=== PATIENT | female | born 1980 | race African-American/Black ===

== ENCOUNTER 2016-11-20 11:44 | Emergency (ER) | payer OTHER ==
[2016-11-20 11:51] VITALS: BP 133/89
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
== END 2016-11-20 14:55 | disposition home or self-care (01) ==
LOC: ER 11:44
DX: M79.605 Pain in left leg (principal); M79.604 Pain in right leg; F17.200 Nicotine dependence, unspecified, uncomplicated; E78.00 Pure hypercholesterolemia, unspecified; I10 Essential (primary) hypertension; E11.9 Type 2 diabetes mellitus without complications; Z88.6 Allergy status to analgesic agent
CPT/HCPCS: 99283

== ENCOUNTER 2017-10-19 09:55 | Emergency (ER) | payer OTHER ==
[2017-10-19 10:04] VITALS: BP 133/87
[2017-10-19 11:23] LABS: ABSOLUTE EOSINOPHILS # (AUTO) 0.1 10^3/uL (0.0-0.6); ABSOLUTE LYMPHOCYTES (AUTO) 2.1 10^3/uL (0.5-4.7); ABSOLUTE MONOCYTES (AUTO) 0.4 10^3/uL (0.1-1.4); ABSOLUTE NEUT (AUTO) 3.4 10^3/uL (1.7-8.2); BASOPHILS % (AUTO) 0.6 % (0-2); EOSINOPHILS % (AUTO) 1.4 % (0-6); HEMATOCRIT 40.3 % (36.0-47.0); HEMOGLOBIN 13.5 g/dL (12.0-15.5); HGB HCT DIFFERENCE 0.2; LYMPHOCYTES % (AUTO) 34.7 % (13-45); MEAN CORPUSCULAR HEMOGLOBIN 30.4 pg (27.0-33.4); MEAN CORPUSCULAR HGB CONC 33.4 g/dL (32.0-36.0); MEAN CORPUSCULAR VOLUME 91 fl (80-97); MONOCYTES % (AUTO) 6.3 % (3-13); RED BLOOD COUNT 4.43 10^6/uL (3.72-5.28); RED CELL DISTRIBUTION WIDTH 13.7 % (11.5-14.0)
[2017-10-19 11:46] LABS: ALANINE AMINOTRANSFERASE 27 U/L (9-52); ALBUMIN 4.3 g/dL (3.5-5.0); ALKALINE PHOSPHATASE 58 U/L (38-126); ANION GAP 12 (5-19); ASPARTATE AMINO TRANSFERASE 12 U/L (14-36); BILIRUBIN,DIRECT 0.3 mg/dL (0.0-0.4); BILIRUBIN,TOTAL 0.5 mg/dL (0.2-1.3); BLOOD UREA NITROGEN 11 mg/dL (7-20); CALCIUM 9.9 mg/dL (8.4-10.2); CARBON DIOXIDE 24 mmol/L (22-30); CHLORIDE 104 mmol/L (98-107); CREATININE RESULT 0.63 mg/dL (0.52-1.25); GLUCOSE 206 mg/dL (75-110); LIPASE 70.7 U/L (23-300); POTASSIUM 4.6 mmol/L (3.6-5.0); TOTAL PROTEIN 6.8 g/dL (6.3-8.2)
[2017-10-19 11:58] LABS: APPEARANCE,URINE SLIGHTLY-CLOUDY; BILIRUBIN,URINE NEGATIVE (NEGATIVE); GLUCOSE, URINE >=500 mg/dL (NEGATIVE); KETONES,URINE TRACE mg/dL (NEGATIVE); LEUKOCYTE ESTERASE,URINE NEGATIVE (NEGATIVE); NITRITE,URINE NEGATIVE (NEGATIVE); PROTEIN,URINE NEGATIVE (NEGATIVE); URINE SPECIFIC GRAVITY 1.033; UROBILINOGEN,URINE NEGATIVE mg/dL (<2.0)
[2017-10-19 12:05] LABS: WBC,URINE 0-1 /HPF
[2017-10-19 12:06] LABS: BACTERIA,URINE 1+ /HPF
--- NOTE | 2017-10-19 12:43 | ER Document Report ---
ED General - General Chief Complaint: Abdominal Pain Stated Complaint: ABDOMINAL PAIN Time Seen by Provider: 10/19/17 10:44 Mode of Arrival: Ambulatory Information source: Patient Notes: Patient presents with abdominal pain. She also states she has had some dizziness and blurry vision. She states she does have problems with anxiety and she has been feeling stressed recently. She states the abdomen pain is a diffuse crampy pain that is intermittent. It is moderate. Nothing makes it better or worse. There is no radiation of the symptoms. She has no problems with urination. No vaginal symptoms. No vomiting or diarrhea. TRAVEL OUTSIDE OF THE [place] IN LAST 30 DAYS: No - Related Data Allergies/Adverse Reactions: acetaminophen [From Tylenol-Codeine] Allergy (Verified 10/19/17 09:56) alprazolam [From Xanax] Allergy (Verified 10/19/17 09:56) codeine phosphate [From Tylenol-Codeine] Allergy (Verified 10/19/17 09:56) diazepam [From Valium] Allergy (Verified 10/19/17 09:56) gabapentin [Gabapentin] Allergy (Verified 10/19/17 09:56) oxycodone Allergy (Verified 10/19/17 09:56) Home Medications: Current Home Medications Carvedilol [Carvedilol] 1 tab PO DAILY 10/19/17 [History] Clonazepam [Klonopin 1 mg Tablet] 1 tab PO TID 10/19/17 [History] Metformin HCl [Metformin HCl] 1 tab PO BID 10/19/17 [History] Past Medical History - General Information source: Patient - Social History Smoking Status: Current Some Day Smoker Frequency of alcohol use: None Drug Abuse: None Family History: Reviewed & Not Pertinent Patient has suicidal ideation: No Patient has homicidal ideation: No - Past Medical History Cardiac Medical History: Reports: Hx Hypercholesterolemia, Hx Hypertension Endocrine Medical History: Reports: Hx Diabetes Mellitus Type 2 Renal/ Medical History: Reports: Hx Ovarian Cysts - Dermoid cysts. Denies: Hx Peritoneal Dialysis Psychiatric Medical History: Reports: Hx Anxiety Past Surgical History: Reports: Hx Abdominal Surgery - sigmoid colon resection as a result of complications of the L oophorectomy, Hx Gynecologic Surgery - Right ovarian cystectomy. Left oophorectomy. - Immunizations Immunizations up to date: No Hx Diphtheria, Pertussis, Tetanus Vaccination: Yes Review of Systems - Review of Systems Constitutional: Malaise, Weakness. denies: Fever Cardiovascular: denies: Chest pain, Palpitations Respiratory: denies: Cough, Short of breath Gastrointestinal: Abdominal pain, Nausea -: Yes All other systems reviewed and negative Physical Exam - Vital signs Vitals: Temp Pulse Resp BP Pulse Ox 99.1 F 94 15 133/87 H 99 10/19/17 10:03 10/19/17 10:03 10/19/17 10:03 10/19/17 10:03 10/19/17 10:03 Interpretation: Hypertensive - General General appearance: Appears well, Alert - HEENT Head: Normocephalic, Atraumatic Eyes: Normal Pupils: PERRL - Respiratory Respiratory status: No respiratory distress Chest status: Nontender Breath sounds: Normal Chest palpation: Normal - Cardiovascular Rhythm: Regular Heart sounds: Normal auscultation Murmur: No - Abdominal Inspection: Normal Distension: No distension Bowel sounds: Normal Tenderness: Nontender Organomegaly: No organomegaly - Back Back: Normal, Nontender - Extremities General upper extremity: Normal inspection, Nontender, Normal color, Normal ROM , Normal temperature General lower extremity: Normal inspection, Nontender, Normal color, Normal ROM , Normal temperature, Normal weight bearing. No: Andry's sign - Neurological Neuro grossly intact: Yes Cognition: Normal Orientation: AAOx4 Agustina Coma Scale Eye Opening: Spontaneous Agustina Coma Scale Verbal: Oriented [place] Coma Scale Motor: Obeys Commands Agustina Coma Scale Total: 15 Speech: Normal Motor strength normal: LUE, RUE, LLE, RLE Sensory: Normal - Psychological Associated symptoms: Normal affect, Normal mood - Skin Skin Temperature: Warm Skin Moisture: Dry Skin Color: Normal Course - Vital Signs Vital signs: Temp Pulse Resp BP Pulse Ox 99.1 F 94 15 133/87 H 99 10/19/17 10:03 10/19/17 10:03 10/19/17 10:03 10/19/17 10:03 10/19/17 10:03 - Laboratory Result Diagrams: 10/19/17 11:00 10/19/17 11:00 Laboratory results interpreted by me: 10/19/17 10/19/17 11:00 11:00 Glucose 206 H AST 12 L Urine Glucose (UA) >=500 H Urine Ketones TRACE H Discharge - Discharge Clinical Impression: Abdominal pain Qualifiers: Abdominal location: generalized Qualified Code(s): R10.84 - Generalized abdominal pain Condition: Stable Disposition: HOME, SELF-CARE Instructions: Abdominal Pain ([facility]), Antinausea Medication ([facility]) Additional Instructions: Please have your blood pressure rechecked within 1 week by your doctor. Prescriptions: Ondansetron [Zofran Odt 4 mg Tablet] 1 - 2 tab PO Q4H PRN #15 tab.rapdis PRN Reason: For Nausea/Vomiting Forms: Elevated Blood Pressure, Return to Work Referrals: YURI RUBALCAVA MD [COMMUNITY BASED STAFF] - Follow up as needed
== END 2017-10-19 13:01 | disposition home or self-care (01) ==
LOC: ER 09:55
DX: R10.84 Generalized abdominal pain (principal); R42 Dizziness and giddiness; R11.0 Nausea; R53.1 Weakness; F17.200 Nicotine dependence, unspecified, uncomplicated; E78.00 Pure hypercholesterolemia, unspecified; I10 Essential (primary) hypertension; E11.9 Type 2 diabetes mellitus without complications; Z88.6 Allergy status to analgesic agent
CPT/HCPCS: 36415; 80053; 81001; 81025; 83690; 85025; 99284

== ENCOUNTER 2019-03-09 09:49 | Emergency (ER) | payer SELFPAY ==
[2019-03-09] MEDS ORDERED: ONDANSETRON HCL INJ/PF 4 MG/2 ML SDV IV ONE (10:44)
[2019-03-09] MEDS ORDERED: NORMAL SALINE 1000 ML 1,000 ML IV ONE (10:44)
--- NOTE | 2019-03-09 10:46 | ER Document Report ---
ED Medical Screen (RME) - General Chief Complaint: Dizziness Stated Complaint: DIZZY/MOUTH PAIN Time Seen by Provider: 03/09/19 10:40 Mode of Arrival: Ambulatory Information source: Patient TRAVEL OUTSIDE OF THE [place] IN LAST 30 DAYS: No - HPI Patient complains to provider of: DIZZINESS Notes: 03/09/19 10:45 Patient here with complaints of feeling dizzy like she is going to pass out for the last few days. She has had nausea, no vomiting. No chest pain. No numbness, tingling, weakness. No blurred or loss of vision. She has not had a syncopal episode. She also complains of some dental pain. She reports that her blood sugars have been running over 300. She is a gaq-ihxexil-mhavauuzh diabetic. She states she has been taking her medication. Exam Nontoxic, no distress. Lungs clear and equal throughout. Heart sounds normal. Nonfocal neurological exam. Plan CBC, CMP, lipase, urinalysis, urine , troponin, EKG, chest x-ray, saline lock, IV fluids due to mild tachycardia, Zofran. An initial examination was made on the patient as part of the triage process, and it was determined a more comprehensive evaluation was necessary. Initial labs were ordered and patient was transferred to another provider in the ED who assumed care and finished evaluation and plan. - Related Data Allergies/Adverse Reactions: acetaminophen [From Tylenol-Codeine] Allergy (Verified 03/09/19 09:50) alprazolam [From Xanax] Allergy (Verified 03/09/19 09:50) codeine phosphate [From Tylenol-Codeine] Allergy (Verified 03/09/19 09:50) diazepam [From Valium] Allergy (Verified 03/09/19 09:50) gabapentin [Gabapentin] Allergy (Verified 03/09/19 09:50) oxycodone Allergy (Verified 03/09/19 09:50) Past Medical History - Social History Frequency of alcohol use: None Drug Abuse: None - Past Medical History Cardiac Medical History: Reports: Hx Hypercholesterolemia, Hx Hypertension Endocrine Medical History: Reports: Hx Diabetes Mellitus Type 2 Renal/ Medical History: Reports: Hx Ovarian Cysts - Dermoid cysts. Denies: Hx Peritoneal Dialysis Psychiatric Medical History: Reports: Hx Anxiety Past Surgical History: Reports: Hx Abdominal Surgery - sigmoid colon resection as a result of complications of the L oophorectomy, Hx Gynecologic Surgery - Right ovarian cystectomy. Left oophorectomy. - Immunizations Immunizations up to date: No Hx Diphtheria, Pertussis, Tetanus Vaccination: Yes Physical Exam - Vital signs Vitals: Temp Pulse Resp BP Pulse Ox 98.3 F 102 H 14 131/87 H 98 03/09/19 09:57 03/09/19 09:57 03/09/19 09:57 03/09/19 09:57 03/09/19 09:57 Course - Vital Signs Vital signs: Temp Pulse Resp BP Pulse Ox 98.3 F 102 H 14 131/87 H 98 03/09/19 09:57 03/09/19 09:57 03/09/19 09:57 03/09/19 09:57 03/09/19 09:57
--- NOTE | 2019-03-09 11:13 | RADIOLOGY REPORT (SQ) ---
EXAM DESCRIPTION: CHEST SINGLE VIEW COMPLETED DATE/TIME: 03/09/2019 10:59 am REASON FOR STUDY: NEAR SYNCOPE COMPARISON: None. EXAM PARAMETERS: NUMBER OF VIEWS: One view. TECHNIQUE: Single frontal radiographic view of the chest acquired. RADIATION DOSE: NA LIMITATIONS: None. FINDINGS: LUNGS AND PLEURA: No opacities, masses or pneumothorax. No pleural effusion. MEDIASTINUM AND HILAR STRUCTURES: No masses. Contour normal. HEART AND VASCULAR STRUCTURES: Heart normal in size. Normal vasculature. BONES: No acute findings. HARDWARE: None in the chest. OTHER: No other significant finding. IMPRESSION: NO ACUTE RADIOGRAPHIC FINDING IN THE CHEST. TECHNICAL DOCUMENTATION: JOB ID: [id number] [employer]- All Rights Reserved Reading location - IP/workstation name: [email or web address]
[2019-03-09 11:52] LABS: ABSOLUTE BASOPHILS # (AUTO) 0.1 10^3/uL (0.0-0.2); ABSOLUTE EOSINOPHILS # (AUTO) 0.1 10^3/uL (0.0-0.6); ABSOLUTE LYMPHOCYTES (AUTO) 1.9 10^3/uL (0.5-4.7); ABSOLUTE MONOCYTES (AUTO) 0.4 10^3/uL (0.1-1.4); ABSOLUTE NEUT (AUTO) 3.9 10^3/uL (1.7-8.2); BASOPHILS % (AUTO) 0.9 % (0-2); EOSINOPHILS % (AUTO) 2.2 % (0-6); HEMATOCRIT 37.8 % (36.0-47.0); HEMOGLOBIN 12.9 g/dL (12.0-15.5); LYMPHOCYTES % (AUTO) 29.9 % (13-45); MEAN CORPUSCULAR HEMOGLOBIN 30.7 pg (27.0-33.4); MEAN CORPUSCULAR HGB CONC 34.2 g/dL (32.0-36.0); MEAN CORPUSCULAR VOLUME 90 fl (80-97); MONOCYTES % (AUTO) 6.4 % (3-13); PLATELET COUNT 297 10^3/uL (150-450); RED CELL DISTRIBUTION WIDTH 13.9 % (11.5-14.0); SEGMENTED NEUTROPHILS % (AUTO) 60.6 % (42-78); TOTAL CELLS COUNTED % (AUTO) 100 %; WHITE BLOOD COUNT 6.5 10^3/uL (4.0-10.5)
[2019-03-09 12:15] LABS: APPEARANCE,URINE SLIGHTLY-CLOUDY; BILIRUBIN,URINE NEGATIVE (NEGATIVE); COLOR,URINE STRAW; GLUCOSE, URINE >=500 mg/dL (NEGATIVE); KETONES,URINE NEGATIVE (NEGATIVE); LEUKOCYTE ESTERASE,URINE SMALL (NEGATIVE); NITRITE,URINE NEGATIVE (NEGATIVE); PROTEIN,URINE NEGATIVE (NEGATIVE); URINE SPECIFIC GRAVITY 1.003; UROBILINOGEN,URINE NEGATIVE mg/dL (<2.0)
[2019-03-09] MEDS ORDERED: HYDROXYZINE HCL 10 MG TABLET PO ONE (12:37)
--- NOTE | 2019-03-09 12:39 | EKG REPORT ---
SEVERITY:- BORDERLINE ECG - SINUS RHYTHM PROBABLE LEFT ATRIAL ABNORMALITY BORDERLINE T ABNORMALITIES, ANTERIOR LEADS : Confirmed by: Karel Fontana MD 09-Mar-2019 12:37:24
[2019-03-09 13:33] LABS: ALANINE AMINOTRANSFERASE 44 U/L (9-52); ALBUMIN 3.8 g/dL (3.5-5.0); ALKALINE PHOSPHATASE 65 U/L (38-126); ANION GAP 9 (5-19); ASPARTATE AMINO TRANSFERASE 22 U/L (14-36); BILIRUBIN,DIRECT 0.3 mg/dL (0.0-0.4); BILIRUBIN,TOTAL 0.4 mg/dL (0.2-1.3); BLOOD UREA NITROGEN 8 mg/dL (7-20); CALCIUM 9.3 mg/dL (8.4-10.2); CARBON DIOXIDE 24 mmol/L (22-30); CHLORIDE 104 mmol/L (98-107); GLUCOSE 205 mg/dL (75-110); LIPASE 225.7 U/L (23-300); POTASSIUM 5.1 mmol/L (3.6-5.0); SODIUM 136.8 mmol/L (137-145); TOTAL PROTEIN 6.7 g/dL (6.3-8.2)
--- NOTE | 2019-03-09 14:03 | ER Document Report ---
ED General - General Chief Complaint: Dizziness Stated Complaint: DIZZY/MOUTH PAIN Time Seen by Provider: 03/09/19 10:40 Mode of Arrival: Ambulatory TRAVEL OUTSIDE OF THE [place] IN LAST 30 DAYS: No - HPI Notes: Patient is a 38-year-old female who presents to the emergency department for evaluation. She states she is felt dizzy, as if she was going to pass out, for the last several days. She states to me she feels like she could have a seizure. I asked her, she denies any history of seizures. She does have a history of anxiety. She denies any chest pain. She denies any shortness of breath. No vertiginous symptoms. No upper respiratory infection symptoms or ear pain. She states she just feels dizzy and like something is not right. She has felt short of breath intermittently. She also states that she has a tooth that broke about a month ago. She states she is concerned it could be infected. She thought that perhaps that was what was making her feel dizzy. She does not have a dentist. - Related Data Allergies/Adverse Reactions: alprazolam [From Xanax] Allergy (Verified 03/09/19 09:50) codeine phosphate [From Tylenol-Codeine] Allergy (Verified 03/09/19 09:50) diazepam [From Valium] Allergy (Verified 03/09/19 09:50) gabapentin [Gabapentin] Allergy (Verified 03/09/19 09:50) oxycodone Allergy (Verified 03/09/19 09:50) Past Medical History - General Information source: Patient - Social History Smoking Status: Never Smoker Frequency of alcohol use: None Drug Abuse: None Family History: DM Patient has suicidal ideation: No Patient has homicidal ideation: No - Past Medical History Cardiac Medical History: Reports: Hx Hypercholesterolemia, Hx Hypertension, Other - Patient has had a negative stress test in the past Endocrine Medical History: Reports: Hx Diabetes Mellitus Type 2 Renal/ Medical History: Reports: Hx Ovarian Cysts - Dermoid cysts. Denies: Hx Peritoneal Dialysis Psychiatric Medical History: Reports: Hx Anxiety Past Surgical History: Reports: Hx Abdominal Surgery - sigmoid colon resection as a result of complications of the L oophorectomy, Hx Gynecologic Surgery - Right ovarian cystectomy. Left oophorectomy. - Immunizations Immunizations up to date: No Hx Diphtheria, Pertussis, Tetanus Vaccination: Yes Review of Systems - Review of Systems Constitutional: No symptoms reported EENT: See HPI Respiratory: No symptoms reported Gastrointestinal: No symptoms reported Genitourinary: No symptoms reported Musculoskeletal: No symptoms reported Skin: No symptoms reported Neurological/Psychological: See HPI Physical Exam - Vital signs Vitals: Temp Pulse Resp BP Pulse Ox 98.3 F 102 H 14 131/87 H 98 03/09/19 09:57 03/09/19 09:57 03/09/19 09:57 03/09/19 09:57 03/09/19 09:57 - Notes Notes: Vital signs reviewed, please refer to chart. Patient is normocephalic, atraumatic. Pupils equal round, reactive to light. Oral mucosa is moist. Patient's mandibular dentition is in poor condition. Focus on the left first molar yields a cracked and damaged tooth down to the gumline. There is some gingival edema but no focal fluctuance. No facial erythema or edema. Neck is supple without meningismus. Heart is regular rate and rhythm. Lungs are clear to auscultation bilaterally. Abdomen is soft, nontender, normoactive bowel sounds throughout. Extremities without cyanosis, clubbing, edema. Peripheral pulses are equal. Skin is warm and dry. Patient is awake, alert, oriented x3. Cranial nerves II through XII are grossly intact without focal neurological deficits. Strength is plus 5 out of 5 bilateral upper and lower extremities. Sensation is intact. Intact finger nose finger, rapid altering movements, [id number]. Course - Re-evaluation Re-evalutation: 03/09/19 14:03 Patient presents emergency department for evaluation of this dizziness. She also has dental pain. She is treated here for anxiety with hydroxyzine. She is also given antibiotics for her dental pain and decay. She is told she needs to see a dentist as soon as possible. I find it most likely that this patient's s ymptoms are secondary to anxiety. Again treated with antibiotics. I will send her home with some hydroxyzine as this did help her with her symptoms somewhat. She is to follow-up with primary care and a dentist as soon as possible. She is to return to the ED with worsening or new concerning symptoms of any sort. 03/09/19 14:04 - Vital Signs Vital signs: Temp Pulse Resp BP Pulse Ox 98.3 F 102 H 14 131/87 H 98 03/09/19 09:57 03/09/19 09:57 03/09/19 09:57 03/09/19 09:57 03/09/19 09:57 - Laboratory Result Diagrams: 03/09/19 11:20 03/09/19 12:56 Laboratory results interpreted by me: 03/09/19 03/09/19 10:43 12:56 Sodium 136.8 L Potassium 5.1 H Creatinine 0.51 L Glucose 205 H Urine Glucose (UA) >=500 H Ur Leukocyte Esterase SMALL H - EKG Interpretation by Me Additional EKG results interpreted by me: 03/09/19 14:08 Sinus mechanism with a rate of 89 bpm. Normal axis and intervals, nonspecific ST changes, but no acute ST changes concerning for ischemia or infarction. Discharge - Discharge Clinical Impression: Dizziness, Dental decay Condition: Stable Disposition: HOME, SELF-CARE Instructions: Dizziness ([facility]), Dental Infection or Abscess ([facility]), Anxiety ([facility]) Additional Instructions: Take medications as prescribed. Hydroxyzine as needed for anxiety, penicillin for dental issue. He need to see a dentist as soon as possible. Follow-up with her primary care physician this week. Return to the emergency department with worsening or new concerning symptoms of any sort.
[2019-03-09 14:30] VITALS: BP 132/76
== END 2019-03-09 14:20 | disposition home or self-care (01) ==
LOC: ER 09:49
DX: R42 Dizziness and giddiness (principal); K02.9 Dental caries, unspecified; Z88.6 Allergy status to analgesic agent
CPT/HCPCS: 93005; 96374; 99284; 96361; 36415; 83690; 85025; 81025; 80053; 81001; 84484; 71045; 93010; J2405; J7030

== ENCOUNTER 2019-03-15 13:33 | Emergency (ER) | payer SELFPAY ==
[2019-03-15] MEDS ORDERED: NORMAL SALINE 1000 ML 1,000 ML IV ONE (14:42)
--- NOTE | 2019-03-15 14:44 | ER Document Report ---
ED Medical Screen (RME) - General Chief Complaint: High Blood Sugar Stated Complaint: BLOOD SUGAR ISSUES Time Seen by Provider: 03/15/19 14:39 Mode of Arrival: Ambulatory Information source: Patient Notes: Patient is a 38-year-old female with type 2 diabetes presenting to the emergency department with complaints of increased blood glucose over the last 3 to 4 days. She states it has been running in the 3-400 range. She states she takes Victoza and metformin and has been taking these as prescribed. Patient also reports nausea, blurred vision and intermittent dizziness. She denies any pain. Exam: Patient alert, oriented and answering all questions appropriately without any distress noted. Abdomen soft and nontender. I have greeted and performed a rapid initial assessment of this patient. A comprehensive ED assessment and evaluation of the patient, analysis of test results and completion of the medical decision making process will be conducted by additional ED providers. Dictation of this chart was performed using voice recognition software; therefore, there may be some unintended grammatical errors. TRAVEL OUTSIDE OF THE [place] IN LAST 30 DAYS: No - Related Data Allergies/Adverse Reactions: codeine phosphate [From Tylenol-Codeine] Allergy (Verified 03/15/19 14:39) gabapentin [Gabapentin] Allergy (Verified 03/15/19 14:39) Past Medical History - Social History Frequency of alcohol use: None Drug Abuse: None - Past Medical History Cardiac Medical History: Reports: Hx Hypercholesterolemia, Hx Hypertension Endocrine Medical History: Reports: Hx Diabetes Mellitus Type 2 Renal/ Medical History: Reports: Hx Ovarian Cysts - Dermoid cysts. Denies: Hx Peritoneal Dialysis Psychiatric Medical History: Reports: Hx Anxiety Past Surgical History: Reports: Hx Abdominal Surgery - sigmoid colon resection as a result of complications of the L oophorectomy, Hx Gynecologic Surgery - Right ovarian cystectomy. Left oophorectomy. - Immunizations Immunizations up to date: No Hx Diphtheria, Pertussis, Tetanus Vaccination: Yes Physical Exam - Vital signs Vitals: Temp Pulse Resp BP Pulse Ox 98.2 F 112 H 16 125/95 H 97 03/15/19 13:43 03/15/19 13:43 03/15/19 13:43 03/15/19 13:43 03/15/19 13:43 Course - Vital Signs Vital signs: Temp Pulse Resp BP Pulse Ox 98.2 F 112 H 16 125/95 H 97 03/15/19 13:43 03/15/19 13:43 03/15/19 13:43 03/15/19 13:43 03/15/19 13:43
[2019-03-15 16:41] LABS: VENOUS BLOOD BASE EXCESS -0.3 mmol/L; VENOUS BLOOD HCO3 26.2 mmol/L (20-32); VENOUS BLOOD PCO2 49.8 mmHg (35-63); VENOUS BLOOD PH 7.34 (7.30-7.42)
[2019-03-15 16:45] LABS: APPEARANCE,URINE SLIGHTLY-CLOUDY; BILIRUBIN,URINE NEGATIVE (NEGATIVE); COLOR,URINE YELLOW; GLUCOSE, URINE >=500 mg/dL (NEGATIVE); KETONES,URINE NEGATIVE (NEGATIVE); LEUKOCYTE ESTERASE,URINE TRACE (NEGATIVE); NITRITE,URINE NEGATIVE (NEGATIVE); PROTEIN,URINE NEGATIVE (NEGATIVE); URINE SPECIFIC GRAVITY 1.023; UROBILINOGEN,URINE NEGATIVE mg/dL (<2.0)
[2019-03-15 16:51] LABS: ABSOLUTE EOSINOPHILS # (AUTO) 0.1 10^3/uL (0.0-0.6); ABSOLUTE LYMPHOCYTES (AUTO) 2.6 10^3/uL (0.5-4.7); ABSOLUTE MONOCYTES (AUTO) 0.3 10^3/uL (0.1-1.4); BASOPHILS % (AUTO) 0.6 % (0-2); EOSINOPHILS % (AUTO) 1.4 % (0-6); HEMATOCRIT 39.9 % (36.0-47.0); HEMOGLOBIN 13.3 g/dL (12.0-15.5); LYMPHOCYTES % (AUTO) 36.8 % (13-45); MEAN CORPUSCULAR HEMOGLOBIN 29.9 pg (27.0-33.4); MEAN CORPUSCULAR HGB CONC 33.4 g/dL (32.0-36.0); MEAN CORPUSCULAR VOLUME 89 fl (80-97); MONOCYTES % (AUTO) 4.5 % (3-13); PLATELET COUNT 334 10^3/uL (150-450); RED BLOOD COUNT 4.47 10^6/uL (3.72-5.28); RED CELL DISTRIBUTION WIDTH 13.9 % (11.5-14.0); SEGMENTED NEUTROPHILS % (AUTO) 56.7 % (42-78); TOTAL CELLS COUNTED % (AUTO) 100 %
[2019-03-15 17:01] LABS: ALANINE AMINOTRANSFERASE 53 U/L (9-52); ALBUMIN 4.6 g/dL (3.5-5.0); ALKALINE PHOSPHATASE 80 U/L (38-126); ANION GAP 14 (5-19); ASPARTATE AMINO TRANSFERASE 23 U/L (14-36); BILIRUBIN,DIRECT 0.2 mg/dL (0.0-0.4); BILIRUBIN,TOTAL 0.4 mg/dL (0.2-1.3); BLOOD UREA NITROGEN 9 mg/dL (7-20); CALCIUM 10.3 mg/dL (8.4-10.2); CARBON DIOXIDE 25 mmol/L (22-30); CHLORIDE 99 mmol/L (98-107); GLUCOSE 270 mg/dL (75-110); POTASSIUM 4.7 mmol/L (3.6-5.0); SODIUM 138.1 mmol/L (137-145); TOTAL PROTEIN 7.6 g/dL (6.3-8.2)
[2019-03-15 18:01] VITALS: BP 135/78
--- NOTE | 2019-03-15 18:05 | ER Document Report ---
ED Blood Sugar Problem - General Chief Complaint: High Blood Sugar Stated Complaint: BLOOD SUGAR ISSUES Time Seen by Provider: 03/15/19 14:39 Primary Care Provider: ASHLIE ALEJO MD [Primary Care Provider] - Follow up as needed Mode of Arrival: Ambulatory Information source: Patient Notes: Patient is a 38-year-old female with type 2 diabetes presenting to the emergency department with complaints of increased blood glucose over the last 3 to 4 days. She states it has been running in the 3-400 range. She states she takes Victoza and metformin and has been taking these as prescribed. Patient also reports nausea, blurred vision and intermittent dizziness. She denies any pain. TRAVEL OUTSIDE OF THE [place] IN LAST 30 DAYS: No - Related Data Allergies/Adverse Reactions: codeine phosphate [From Tylenol-Codeine] Allergy (Verified 03/15/19 14:39) gabapentin [Gabapentin] Allergy (Verified 03/15/19 14:39) Past Medical History - General Information source: Patient - Social History Smoking Status: Never Smoker Frequency of alcohol use: None Drug Abuse: None Family History: DM Patient has suicidal ideation: No Patient has homicidal ideation: No - Past Medical History Cardiac Medical History: Reports: Hx Hypercholesterolemia, Hx Hypertension Endocrine Medical History: Reports: Hx Diabetes Mellitus Type 2 Renal/ Medical History: Reports: Hx Ovarian Cysts - Dermoid cysts. Denies: Hx Peritoneal Dialysis Psychiatric Medical History: Reports: Hx Anxiety Past Surgical History: Reports: Hx Abdominal Surgery - sigmoid colon resection as a result of complications of the L oophorectomy, Hx Gynecologic Surgery - Right ovarian cystectomy. Left oophorectomy. - Immunizations Immunizations up to date: No Hx Diphtheria, Pertussis, Tetanus Vaccination: Yes Review of Systems - Review of Systems Constitutional: No symptoms reported EENT: Blurred vision Cardiovascular: Dizziness Respiratory: No symptoms reported Gastrointestinal: No symptoms reported Genitourinary: No symptoms reported Female Genitourinary: No symptoms reported Musculoskeletal: No symptoms reported Skin: No symptoms reported Hematologic/Lymphatic: No symptoms reported Neurological/Psychological: No symptoms reported Physical Exam - Vital signs Vitals: Temp Pulse Resp BP Pulse Ox 98.2 F 112 H 16 125/95 H 97 03/15/19 13:43 03/15/19 13:43 03/15/19 13:43 03/15/19 13:43 03/15/19 13:43 - Notes Notes: PHYSICAL EXAMINATION: GENERAL: Well-appearing, well-nourished and in no acute distress. HEAD: Atraumatic, normocephalic. EYES: Pupils equal round and reactive to light, extraocular movements intact, conjunctiva are normal. ENT: Nares patent, oropharynx clear without exudates. Moist mucous membranes. NECK: Normal range of motion, supple without lymphadenopathy LUNGS: Breath sounds clear to auscultation bilaterally and equal. No wheezes rales or rhonchi. HEART: Regular rate and rhythm without murmurs ABDOMEN: Soft, nontender, nondistended abdomen. No guarding, no rebound. No masses appreciated. Female : deferred Musculoskeletal: Normal range of motion, no pitting or edema. No cyanosis. NEUROLOGICAL: Cranial nerves grossly intact. Normal speech, normal gait. Normal sensory, motor exams PSYCH: Normal mood, normal affect. SKIN: Warm, Dry, normal turgor, no rashes or lesions noted. Course - Re-evaluation Re-evalutation: CBC and CMP are unremarkable. Glucose is 270. This was discussed with the patient. Venous blood gas is also within normal limits. No evidence of DKA. Patient encouraged to continue taking her diabetes medications as prescribed and follow-up with her primary care physician. Patient verbalizes understanding of plan however she does not understand why it will not start her on insulin in the ER. I told her that this needs to be started by primary care. She also cannot understand why her blood glucose has been running in the 300-400 range over the last week. Encourage patient to please follow-up with primary care at this time she does not have any life-threatening condition. I also encouraged her to watch her diet and carbohydrate intake. - Vital Signs Vital signs: Temp Pulse Resp BP Pulse Ox 98.2 F 90 18 135/78 H 99 03/15/19 18:00 03/15/19 18:00 03/15/19 18:00 03/15/19 18:00 03/15/19 18:00 - Laboratory Result Diagrams: 03/15/19 16:28 03/15/19 16:28 Laboratory results interpreted by me: 03/15/19 03/15/19 16:28 16:28 Glucose 270 H Calcium 10.3 H ALT 53 H Urine Glucose (UA) >=500 H Ur Leukocyte Esterase TRACE H Discharge - Discharge Clinical Impression: Hyperglycemia Condition: Stable Disposition: HOME, SELF-CARE Additional Instructions: Your blood glucose levels today were elevated but not dangerously high. We ran multiple blood tests and there is no evidence of anything life-threatening such as diabetic ketoacidosis. I suggest you continue taking your diabetes medications as prescribed. Drink plenty of fluids. Please follow-up with your primary care provider. Forms: Return to Work Referrals: ASHLIE ALEJO MD [Primary Care Provider] - Follow up as needed
== END 2019-03-15 18:19 | disposition home or self-care (01) ==
LOC: ER 13:33
DX: E11.65 Type 2 diabetes mellitus with hyperglycemia (principal); Z79.84 Long term (current) use of oral hypoglycemic drugs; R11.0 Nausea; H53.8 Other visual disturbances; R42 Dizziness and giddiness; I10 Essential (primary) hypertension; Z88.5 Allergy status to narcotic agent; Z88.6 Allergy status to analgesic agent
CPT/HCPCS: 99284; 96360; 36415; 85025; 80053; 81001; 82803; J7030

== ENCOUNTER 2019-11-17 11:06 | Emergency (ER) | payer SELFPAY ==
[2019-11-17] MEDS ORDERED: NORMAL SALINE 1000 ML 1,000 ML IV ONE (11:20)
--- NOTE | 2019-11-17 11:21 | ER Document Report ---
ED Medical Screen (RME) - General Chief Complaint: Chest Pain Stated Complaint: CHEST PAIN/BLOOD SUGAR ISSUE Time Seen by Provider: 11/17/19 11:16 Primary Care Provider: ASHLIE ALEJO MD [Primary Care Provider] - Follow up as needed TRAVEL OUTSIDE OF THE [place] IN LAST 30 DAYS: No - HPI Notes: 11/17/19 11:20 Patient is a 39-year-old female with a history of hypertension and type 2 diabetes who presents complaining of having chest pain to the midsternal area that began this morning as well as not feeling well since last night with some diarrhea. Patient noticed her blood glucose to be in the low 400s this morning which is not usual for her. No fever. No shortness of breath or trouble breathing otherwise. I have treated and performed a rapid initial assessment of this patient. A comprehensive ED assessment and evaluation of the patient, analysis of test results and completion of medical decision making process will be conducted by additional ED providers. PHYSICAL EXAMINATION: GENERAL: Well-appearing, well-nourished and in no acute distress. A&Ox4. Answers questions appropriately. Lungs: CTAB Heart: RRR Extremities: No edema - Related Data Allergies/Adverse Reactions: codeine phosphate [From Tylenol-Codeine] Allergy (Verified 03/15/19 14:39) gabapentin [Gabapentin] Allergy (Verified 03/15/19 14:39) Past Medical History - Past Medical History Cardiac Medical History: Reports: Hx Hypercholesterolemia, Hx Hypertension Endocrine Medical History: Reports: Hx Diabetes Mellitus Type 2 Renal/ Medical History: Reports: Hx Ovarian Cysts - Dermoid cysts. Denies: Hx Peritoneal Dialysis Psychiatric Medical History: Reports: Hx Anxiety Past Surgical History: Reports: Hx Abdominal Surgery - sigmoid colon resection as a result of complications of the L oophorectomy, Hx Gynecologic Surgery - Right ovarian cystectomy. Left oophorectomy. - Immunizations Immunizations up to date: No Hx Diphtheria, Pertussis, Tetanus Vaccination: Yes Physical Exam - Vital signs Vitals: Temp Pulse BP Pulse Ox 98.7 F 109 H 120/75 97 11/17/19 11:14 11/17/19 11:14 11/17/19 11:14 11/17/19 11:14 Course - Vital Signs Vital signs: Temp Pulse Resp BP Pulse Ox 98.7 F 109 H 18 120/75 97 11/17/19 11:14 11/17/19 11:14 11/17/19 11:18 11/17/19 11:14 11/17/19 11:14 Doctor's Discharge - Discharge Referrals: ASHLIE ALEJO MD [Primary Care Provider] - Follow up as needed
--- NOTE | 2019-11-17 12:13 | ER Document Report ---
ED General - General Chief Complaint: High Blood Sugar Stated Complaint: CHEST PAIN/BLOOD SUGAR ISSUE Time Seen by Provider: 11/17/19 11:16 Primary Care Provider: ASHLIE ALEJO MD [Primary Care Provider] - 11/24/19 Mode of Arrival: Ambulatory Information source: Patient Notes: 39-year-old female with history of diabetes hypertension high cholesterol presents emergency department with complaints of chest pain to the center of her chest feels like a sharp electric that comes and goes for the past few weeks. She reports it goes down her left arm every now and then. Reports she had vomiting on but none since. Reports she has daily diarrhea for a long time now. Denies fever. Reports she is checked her sugar this morning had a high blood glucose. It worried her so she came here. Reports she is never been admitted for DKA. TRAVEL OUTSIDE OF THE [place] IN LAST 30 DAYS: No - HPI Onset: Other Onset/Duration: Waxing and waning Quality of pain: Sharp Associated symptoms: None Exacerbated by: Denies Relieved by: Denies Similar symptoms previously: No Recently seen / treated by doctor: No - Related Data Allergies/Adverse Reactions: codeine phosphate [From Tylenol-Codeine] Allergy (Verified 03/15/19 14:39) gabapentin [Gabapentin] Allergy (Verified 03/15/19 14:39) Past Medical History - General Information source: Patient Last Menstrual Period: August - Social History Smoking Status: Unknown if Ever Smoked Frequency of alcohol use: None - Quit drinking 45 years ago Drug Abuse: None Occupation: [employer] Lives with: Family Family History: DM Patient has suicidal ideation: No Patient has homicidal ideation: No - Past Medical History Cardiac Medical History: Reports: Hx Hypercholesterolemia, Hx Hypertension Endocrine Medical History: Reports: Hx Diabetes Mellitus Type 2 Renal/ Medical History: Reports: Hx Ovarian Cysts - Dermoid cysts. Denies: Hx Peritoneal Dialysis Psychiatric Medical History: Reports: Hx Anxiety Past Surgical History: Reports: Hx Abdominal Surgery - sigmoid colon resection as a result of complications of the L oophorectomy, Hx Gynecologic Surgery - Ri ght ovarian cystectomy. Left oophorectomy. - Immunizations Immunizations up to date: No Hx Diphtheria, Pertussis, Tetanus Vaccination: Yes Review of Systems - Review of Systems Notes: Review HPI for review of systems., All other systems negative Physical Exam - Vital signs Vitals: Temp Pulse BP Pulse Ox 98.7 F 109 H 120/75 97 11/17/19 11:14 11/17/19 11:14 11/17/19 11:14 11/17/19 11:14 - Notes Notes: PHYSICAL EXAMINATION: GENERAL: Well-appearing and in no acute distress HEAD: Atraumatic, normocephalic. EYES: Pupils equal round and reactive to light, extraocular movements intact, sclera anicteric, conjunctiva are normal. ENT: nares patent, . Moist mucous membranes. NECK: Normal range of motion, supple without lymphadenopathy LUNGS: CTAB and equal. No wheezes rales or rhonchi. HEART: Regular rate and rhythm without murmurs ABDOMEN: Soft, no tenderness. No guarding, no rebound EXTREMITIES: Normal range of motion, no pitting edema. No cyanosis. NEUROLOGICAL: Cranial nerves grossly intact. Normal sensory/motor exams. PSYCH: Normal mood, normal affect. SKIN: Warm, Dry, normal turgor, no rashes or lesions noted Course - Re-evaluation Re-evalutation: 11/17/19 13:22 Patient presents emergency department with complaints of sharp chest pain that c omes and goes for the last few weeks. She asked the nurse for something for her anxiety. She reports she believes is where the chest pain is coming from. Klonopin ordered. 11/17/19 15:45 11/17/19 12:29 11/17/19 12:29 MCV 87 fl (80-97) 11/17/19 12:29 MCH 29.1 pg (27.0-33.4) 11/17/19 12:29 MCHC 33.3 g/dL (32.0-36.0) 11/17/19 12:29 RDW 14.5 % (11.5-14.0) H 11/17/19 12:29 Seg Neutrophils % 60.8 % (42-78) 11/17/19 12:29 VBG pH 7.37 (7.30-7.42) 11/17/19 13:00 VBG pCO2 38.6 mmHg (35-63) 11/17/19 13:00 VBG HCO3 22.0 mmol/L (20-32) 11/17/19 13:00 VBG Base Excess -2.9 mmol/L 11/17/19 13:00 Chloride 102 mmol/L (98-107) 11/17/19 12:29 Carbon Dioxide 22 mmol/L (22-30) 11/17/19 12:29 Anion Gap 12 (5-19) 11/17/19 12:29 Est GFR ( Amer) > 60 (>60) 11/17/19 12:29 Glucose 208 mg/dL (75-110) H 11/17/19 12:29 Calcium 9.9 mg/dL (8.4-10.2) 11/17/19 12:29 Total Bilirubin 0.5 mg/dL (0.2-1.3) 11/17/19 12:29 AST 27 U/L (14-36) 11/17/19 12:29 Alkaline Phosphatase 70 U/L (38-126) 11/17/19 12:29 Total Protein 7.6 g/dL (6.3-8.2) 11/17/19 12:29 Albumin 4.4 g/dL (3.5-5.0) 11/17/19 12:29 Urine Color COLORLESS 11/17/19 11:26 Urine Appearance SLIGHTLY-CLOUDY 11/17/19 11:26 Urine pH 6.0 (5.0-9.0) 11/17/19 11:26 Ur Specific [place] 1.001 11/17/19 11:26 Urine Protein NEGATIVE mg/dL (NEGATIVE) 11/17/19 11:26 Urine Glucose (UA) >=500 mg/dL (NEGATIVE) H 11/17/19 11:26 Urine Ketones NEGATIVE mg/dL (NEGATIVE) 11/17/19 11:26 Urine Blood NEGATIVE (NEGATIVE) 11/17/19 11:26 Urine RBC (Auto) 3 /HPF 11/17/19 11:26 11/17/19 12:29 Troponin I < 0.012 Chest X-Ray 11/17/19 11:19 IMPRESSION: NO ACUTE RADIOGRAPHIC FINDING IN THE CHEST. Labs on remarkable. Accu-Chek 165. Patient reports chest pain completely gone after Klonopin. Patient was treated for vaginal itching with Diflucan. She was instructed on importance of follow-up with her provider November 24 as scheduled.. She was also given a list of mental health community resources to discuss her anxiety. Patient denies suicidal or homicidal ideations. She verbalized understanding to all instructions. EKG is reviewed and interpreted by me. No ST segment elevation or depression. No ischemic T wave inversions. [place] interval, QRS duration, QT intervals are within normal range. The patient has atypical chest pain. The patient's chest pain is not suggestive of pulmonary embolus, cardiac ischemia, aortic dissection or other serious sandra ology. Given the extremely low risk for these diagnosis, further testing and evaluation for these possibilities does not appear to be indicated at this time. The patient has been instructed to return if the symptoms worsen or change in any way. - Vital Signs Vital signs: Temp Pulse Resp BP Pulse Ox 98.4 F 109 H 16 112/86 H 99 11/17/19 14:01 11/17/19 11:14 11/17/19 14:11/17/19 14:01 11/17/19 13:01 - Laboratory Result Diagrams: 11/17/19 12:29 11/17/19 12:29 Laboratory results interpreted by me: 11/17/19 11/17/19 11/17/19 11:26 12:04 12:29 RDW 14.5 H Sodium Creatinine Glucose POC Glucose 217 H Urine Glucose (UA) >=500 H 11/17/19 11/17/19 12:29 14:30 RDW Sodium 136.1 L Creatinine 0.45 L Glucose 208 H POC Glucose 165 H Urine Glucose (UA) - Diagnostic Test Radiology reviewed: Image reviewed, Reports reviewed - EKG Interpretation by Me EKG shows normal: Sinus rhythm Rate: Tachycardia When compared to previous EKG there are: No significant change Additional EKG results interpreted by me: 11/17/19 12:[address] elevation no T wave inversion Discharge - Discharge Clinical Impression: Hyperglycemia, Vaginal itching Chest pain Qualifiers: Chest pain type: unspecified Qualified Code(s): R07.9 - Chest pain, unspecified Diabetes Qualifiers: Diabetes mellitus complication status: without complication Condition: Stable Disposition: HOME, SELF-CARE Instructions: Chest Pain of Unclear Cause ([facility]) Additional Instructions: *You have been evaluated for chest pain, hyperglycemia, vaginal itching *Monitor your blood glucose, take medication as prescribed *Follow up with [facility] as scheduled November 24 for referral to cardiology as indicated *Follow-up with mental health or Dr. Parsons to discuss anxiety *Return to ED for worsening condition, changes, needs *Return to ED if not better in 24 hours Referrals: ASHLIE ALEJO MD [Primary Care Provider] - 11/24/19
[2019-11-17 12:17] LABS: AMORPHOUS SEDIMENT,URINE TRACE /HPF; APPEARANCE,URINE SLIGHTLY-CLOUDY; BILIRUBIN,URINE NEGATIVE (NEGATIVE); COLOR,URINE COLORLESS; GLUCOSE, URINE >=500 mg/dL (NEGATIVE); KETONES,URINE NEGATIVE (NEGATIVE); PROTEIN,URINE NEGATIVE (NEGATIVE); URINE SPECIFIC GRAVITY 1.001; UROBILINOGEN,URINE NEGATIVE mg/dL (<2.0)
[2019-11-17 12:53] LABS: ABSOLUTE EOSINOPHILS # (AUTO) 0.1 10^3/uL (0.0-0.6); ABSOLUTE LYMPHOCYTES (AUTO) 2.2 10^3/uL (0.5-4.7); ABSOLUTE MONOCYTES (AUTO) 0.5 10^3/uL (0.1-1.4); ABSOLUTE NEUT (AUTO) 4.5 10^3/uL (1.7-8.2); BASOPHILS % (AUTO) 0.6 % (0-2); HEMATOCRIT 38.7 % (36.0-47.0); HEMOGLOBIN 12.9 g/dL (12.0-15.5); LYMPHOCYTES % (AUTO) 29.8 % (13-45); MEAN CORPUSCULAR HEMOGLOBIN 29.1 pg (27.0-33.4); MEAN CORPUSCULAR HGB CONC 33.3 g/dL (32.0-36.0); MEAN CORPUSCULAR VOLUME 87 fl (80-97); MONOCYTES % (AUTO) 6.8 % (3-13); PLATELET COUNT 303 10^3/uL (150-450); RED BLOOD COUNT 4.43 10^6/uL (3.72-5.28); RED CELL DISTRIBUTION WIDTH 14.5 % (11.5-14.0); SEGMENTED NEUTROPHILS % (AUTO) 60.8 % (42-78); TOTAL CELLS COUNTED % (AUTO) 100 %; WHITE BLOOD COUNT 7.4 10^3/uL (4.0-10.5)
[2019-11-17 13:04] LABS: ALBUMIN 4.4 g/dL (3.5-5.0); ALKALINE PHOSPHATASE 70 U/L (38-126); ANION GAP 12 (5-19); ASPARTATE AMINO TRANSFERASE 27 U/L (14-36); BILIRUBIN,DIRECT 0.3 mg/dL (0.0-0.4); BILIRUBIN,TOTAL 0.5 mg/dL (0.2-1.3); BLOOD UREA NITROGEN 9 mg/dL (7-20); CALCIUM 9.9 mg/dL (8.4-10.2); CARBON DIOXIDE 22 mmol/L (22-30); CHLORIDE 102 mmol/L (98-107); GLUCOSE 208 mg/dL (75-110); POTASSIUM 4.4 mmol/L (3.6-5.0); TOTAL PROTEIN 7.6 g/dL (6.3-8.2)
--- NOTE | 2019-11-17 13:07 | RADIOLOGY REPORT (SQ) ---
EXAM DESCRIPTION: CHEST 2 VIEWS COMPLETED DATE/TIME: 11/17/2019 12:53 pm REASON FOR STUDY: CP COMPARISON: 03/09/2019 EXAM PARAMETERS: NUMBER OF VIEWS: two views TECHNIQUE: Digital Frontal and Lateral radiographic views of the chest acquired. RADIATION DOSE: NA LIMITATIONS: none FINDINGS: LUNGS AND PLEURA: No opacities, masses or pneumothorax. No pleural effusion. MEDIASTINUM AND HILAR STRUCTURES: No masses or contour abnormalities. HEART AND VASCULAR STRUCTURES: Heart normal size. No evidence for failure. BONES: No acute findings. HARDWARE: None in the chest. OTHER: No other significant finding. IMPRESSION: NO ACUTE RADIOGRAPHIC FINDING IN THE CHEST. TECHNICAL DOCUMENTATION: JOB ID: [id number] [employer] All Rights Reserved Reading location - IP/workstation name: [email or web address]
[2019-11-17 13:10] LABS: VENOUS BLOOD BASE EXCESS -2.9 mmol/L; VENOUS BLOOD PCO2 38.6 mmHg (35-63); VENOUS BLOOD PH 7.37 (7.30-7.42)
[2019-11-17] MEDS ORDERED: CLONAZEPAM 1 MG TABLET PO ONE (13:16)
[2019-11-17] MEDS ORDERED: FLUCONAZOLE 100 MG TABLET PO ONE (14:39)
--- NOTE | 2019-11-17 14:49 | EKG REPORT ---
SEVERITY:- BORDERLINE ECG - SINUS TACHYCARDIA PROBABLE LEFT ATRIAL ABNORMALITY BORDERLINE T ABNORMALITIES, ANTERIOR LEADS : Confirmed by: Karel Fontana MD 17-Nov-2019 14:49:35
[2019-11-17 15:01] VITALS: BP 112/86
== END 2019-11-17 14:59 | disposition home or self-care (01) ==
LOC: ER 11:06
DX: E11.65 Type 2 diabetes mellitus with hyperglycemia (principal); L29.9 Pruritus, unspecified; F41.9 Anxiety disorder, unspecified; R07.9 Chest pain, unspecified; R00.0 Tachycardia, unspecified; I10 Essential (primary) hypertension; R19.7 Diarrhea, unspecified; Z88.6 Allergy status to analgesic agent; Z88.5 Allergy status to narcotic agent
CPT/HCPCS: 93005; 99285; 96360; 96361; 36415; 82962; 85025; 81025; 80053; 81001; 84484; 82803; 71046; 93010; J7030

== ENCOUNTER 2020-10-15 09:43 | Emergency (ER) | payer SELFPAY ==
[2020-10-15 10:08] LABS: ABSOLUTE EOSINOPHILS # (AUTO) 0.1 10^3/uL (0.0-0.6); ABSOLUTE LYMPHOCYTES (AUTO) 1.9 10^3/uL (0.5-4.7); ABSOLUTE MONOCYTES (AUTO) 0.4 10^3/uL (0.1-1.4); ABSOLUTE NEUT (AUTO) 3.7 10^3/uL (1.7-8.2); BASOPHILS % (AUTO) 0.6 % (0-2); EOSINOPHILS % (AUTO) 1.9 % (0-6); HEMATOCRIT 38.9 % (36.0-47.0); HEMOGLOBIN 12.7 g/dL (12.0-15.5); LYMPHOCYTES % (AUTO) 30.4 % (13-45); MEAN CORPUSCULAR HEMOGLOBIN 29.8 pg (27.0-33.4); MEAN CORPUSCULAR HGB CONC 32.7 g/dL (32.0-36.0); MEAN CORPUSCULAR VOLUME 91 fl (80-97); MONOCYTES % (AUTO) 6.4 % (3-13); PLATELET COUNT 295 10^3/uL (150-450); RED BLOOD COUNT 4.28 10^6/uL (3.72-5.28); RED CELL DISTRIBUTION WIDTH 14.9 % (11.5-14.0); SEGMENTED NEUTROPHILS % (AUTO) 60.7 % (42-78); TOTAL CELLS COUNTED % (AUTO) 100 %; WHITE BLOOD COUNT 6.1 10^3/uL (4.0-10.5)
[2020-10-15 10:30] LABS: ALBUMIN 4.4 g/dL (3.5-5.0); ALKALINE PHOSPHATASE 114 U/L (38-126); ANION GAP 10 (5-19); ASPARTATE AMINO TRANSFERASE 55 U/L (14-36); BILIRUBIN,DIRECT 0.2 mg/dL (0.0-0.4); BILIRUBIN,TOTAL 0.5 mg/dL (0.2-1.3); BLOOD UREA NITROGEN 10 mg/dL (7-20); CALCIUM 9.5 mg/dL (8.4-10.2); CARBON DIOXIDE 23 mmol/L (22-30); CHLORIDE 99 mmol/L (98-107); POTASSIUM 5.1 mmol/L (3.6-5.0); TOTAL PROTEIN 7.5 g/dL (6.3-8.2)
--- NOTE | 2020-10-15 10:39 | ER Document Report ---
ED General - General Chief Complaint: High Blood Sugar Stated Complaint: WEAKNESS Time Seen by Provider: 10/15/20 10:38 TRAVEL OUTSIDE OF THE [place] IN LAST 30 DAYS: No - HPI Notes: 40-year-old female presents with high blood sugar. Patient states that this morning she took her blood sugar and the kit said her sugar was 38, she states that she ate and drink a lot of sugar and rechecked her sugar however it still remained low. However she states that she could tell her sugars were high as she was "having symptoms of feeling like my sugar is high", does not really elaborate much on this aside from feeling antsy. She states that she called EMS and was advised to not take any insulin. She states that she takes metformin, Victoza and Humalog sliding scale. She took her oral medications today. She states that she is simply here because the sugar testing kit malfunctioned, not because she does not take care of herself. States that she has been a diabetic since she was 19 and typically has good control, she usually panics when her sugar goes above 300. She otherwise denies symptoms. She states that she wants to get her blood sugar lower and go home. - Related Data Allergies/Adverse Reactions: codeine phosphate [From Tylenol-Codeine] Allergy (Verified 10/15/20 11:26) gabapentin [Gabapentin] Allergy (Verified 10/15/20 11:26) Past Medical History - General Information source: Patient - Social History Smoking Status: Never Smoker Family History: DM - Past Medical History Cardiac Medical History: Reports: Hx Hypercholesterolemia, Hx Hypertension Endocrine Medical History: Reports: Hx Diabetes Mellitus Type 2 Renal/ Medical History: Reports: Hx Ovarian Cysts - Dermoid cysts. Denies: Hx Peritoneal Dialysis Psychiatric Medical History: Reports: Hx Anxiety Past Surgical History: Reports: Hx Abdominal Surgery - sigmoid colon resection as a result of complications of the L oophorectomy, Hx Gynecologic Surgery - Right ovarian cystectomy. Left oophorectomy. - Immunizations Immunizations up to date: No Hx Diphtheria, Pertussis, Tetanus Vaccination: Yes Review of Systems - Review of Systems Constitutional: denies: Fever EENT: No symptoms reported Cardiovascular: No symptoms reported Respiratory: No symptoms reported Gastrointestinal: No symptoms reported Genitourinary: No symptoms reported Female Genitourinary: No symptoms reported Musculoskeletal: No symptoms reported Skin: No symptoms reported Hematologic/Lymphatic: No symptoms reported Neurological/Psychological: No symptoms reported Physical Exam - Vital signs Vitals: Resp Pulse Ox 19 100 10/15/20 09:54 10/15/20 09:54 - General General appearance: Appears well, Alert In distress: None Notes: Texting on phone throughout most of encounter - HEENT Head: Normocephalic, Atraumatic Eyes: No: Scleral icterus Extraocular movements intact: Yes Pupils: PERRL - Respiratory Breath sounds: Normal - Cardiovascular Rhythm: Regular Heart sounds: Normal auscultation - Abdominal Inspection: Obese Tenderness: Nontender - Extremities General upper extremity: Normal ROM General lower extremity: Normal ROM - Neurological Neuro grossly intact: Yes Cognition: Normal Orientation: AAOx4 - Psychological Associated symptoms: Normal affect - Skin Skin Temperature: Warm Course - Re-evaluation Re-evalutation: 40-year-old female history of diabetes on oral medications and SSI here for hyperglycemia. Had low blood sugar reading on her monitor at home, consumed multiple sugary-containing substances and how has marked hyperglycemia, greater than 500. On exam she is well-appearing, hemodynamically stable, lungs are clear and abdomen is soft. Do not find any obvious focal source of infection. Likely this is related to her consuming too much sugar and not covering with sliding scale. Will undergo laboratory evaluation to assure that no DKA is present, though low suspicion for this. Start with 2 L of fluid. 10/15/20 10:55 Informed by nursing that patient is now requesting to leave as she can "do all of this at home" 10/15/20 11:01 I went in to discuss with patient her request to leave AMA, she is now agreeable to stay to complete treatment course. She has hyperglycemia however normal bicarb and normal creatinine 10/15/20 12:23 Glucose has down trended to 254 following fluids, appropriate now to cover with sliding scale, Humalog has been ordered, pH is within normal limits therefore labs not suggestive of DKA 10/15/20 13:05 Informed by nursing that patient has eloped from the emergency department - Vital Signs Vital signs: Temp Pulse Resp BP Pulse Ox 98.3 F 15 147/104 H 99 10/15/20 10:11 10/15/20 10:27 10/15/20 10:27 10/15/20 11:03 - Laboratory Result Diagrams: 10/15/20 09:54 10/15/20 09:54 Laboratory results interpreted by me: 10/15/20 10/15/20 10/15/20 09:52 09:54 09:54 RDW 14.9 H VBG pCO2 Sodium 131.6 L Potassium 5.1 H Glucose 529 H* POC Glucose 515 H* AST 55 H ALT 74 H Urine Glucose (UA) 10/15/20 10/15/20 10/15/20 09:54 11:07 12:13 RDW VBG pCO2 33.8 L Sodium Potassium Glucose POC Glucose 254 H AST ALT Urine Glucose (UA) >=500 H Discharge - Discharge Clinical Impression: Hyperglycemia due to diabetes mellitus, Eloped from emergency department Disposition: ELOPED
[2020-10-15 10:42] LABS: GLUCOSE 529 mg/dL (75-110)
[2020-10-15] MEDS ORDERED: RINGERS SOLUTION,LACTATED 1,000 ML IV ONE (10:42)
[2020-10-15 10:47] LABS: APPEARANCE,URINE CLEAR; BILIRUBIN,URINE NEGATIVE (NEGATIVE); COLOR,URINE STRAW; GLUCOSE, URINE >=500 mg/dL (NEGATIVE); KETONES,URINE NEGATIVE (NEGATIVE); LEUKOCYTE ESTERASE,URINE NEGATIVE (NEGATIVE); NITRITE,URINE NEGATIVE (NEGATIVE); PROTEIN,URINE NEGATIVE (NEGATIVE); URINE SPECIFIC GRAVITY 1.015; UROBILINOGEN,URINE NEGATIVE mg/dL (<2.0)
[2020-10-15 11:25] VITALS: BP 147/104
[2020-10-15 11:25] LABS: VENOUS BLOOD BASE EXCESS -3.7 mmol/L; VENOUS BLOOD HCO3 20.4 mmol/L (20-32); VENOUS BLOOD PCO2 33.8 mmHg (35-63); VENOUS BLOOD PH 7.4 (7.30-7.42)
[2020-10-15] MEDS ORDERED: INSULIN LISPRO 100 UNIT/ML 3 ML VIAL SUBCUT ONE (12:18)
== END 2020-10-15 13:09 | disposition left against medical advice (07) ==
LOC: ER 09:43
DX: E11.65 Type 2 diabetes mellitus with hyperglycemia (principal); Z88.8 Allergy status to other drugs, medicaments and biological substances; I10 Essential (primary) hypertension; Z53.20 Procedure and treatment not carried out because of patient's decision for unspecified reasons
CPT/HCPCS: 99281; 96372; 96360; 36415; 82962; 85025; 81025; 80053; 81001; 82803; J1815; J7120